=== PATIENT | male | born 2005 | race Caucasian/White ===

== ENCOUNTER → 2025-04-26 10:58 | Outpatient (REF) | payer MEDICARE, OTHER, SELFPAY | LOC: RAD 10:58 | PROVIDERS: ATTENDING PHYSICIAN Internal Medicine; FAMILY PHYSICIAN Internal Medicine | DX: Z15.01 Genetic susceptibility to malignant neoplasm of breast (principal); Z15.09 Genetic susceptibility to other malignant neoplasm | CPT/HCPCS: 76536 ==